=== PATIENT | male | born 1960 | race Caucasian/White ===

== ENCOUNTER 2022-12-19 17:25 | Inpatient (IN) | payer MEDICAID, OTHER ==
--- NOTE | 2022-12-19 17:37 | ED ---
General Adult HPI - General Source: patient, police, RN notes reviewed, old records reviewed Limitations: no limitations <Miguel Dietrich - Last Filed: 12/19/22 17:55> <Stas Hernandez - Last Filed: 12/19/22 22:57> - General Stated complaint: Mental Health, ETOH Time Seen by Provider: 12/19/22 17:27 - History of Present Illness Initial comments: 60-year-old male presenting with local police for evaluation of suicidal ideation with plan to hang himself. Patient was found in the [place] by police he was agitated, aggressive, and intoxicated. He was starting to hang himself and stated that even if he was taken in for mental health evaluation he would complete suicide when he is released. (Miguel Dietrich) - Related Data Home Medications Medication Instructions Recorded Confirmed Ibuprofen [Motrin Ib] 400 mg PO BID 12/19/22 12/19/22 Multivitamins, Thera [Multivitamin 1 tab PO DAILY 12/19/22 12/19/22 (formulary)] Allergies Allergy/AdvReac Type Severity Reaction Status Date / Time No Known Allergies Allergy Verified 12/19/22 19:47 Review of Systems ROS Other: All systems not noted in ROS Statement are negative. <Miguel Dietrich - Last Filed: 12/19/22 17:55> ROS Other: All systems not noted in ROS Statement are negative. <Stas Hernandez - Last Filed: 12/19/22 22:57> ROS Statement: Those systems with pertinent positive or pertinent negative responses have been documented in the HPI. General Exam General appearance: alert, appears intoxicated Head exam: Present: atraumatic, normocephalic Eye exam: Present: normal appearance, PERRL ENT exam: Present: normal exam Neck exam: Present: normal inspection. Absent: tenderness, meningismus Respiratory exam: Present: normal lung sounds bilaterally. Absent: respiratory distress, wheezes Cardiovascular Exam: Present: regular rate, normal rhythm GI/Abdominal exam: Present: soft. Absent: distended, tenderness, guarding Extremities exam: Present: normal inspection, normal capillary refill Neurological exam: Present: alert, oriented X3, CN II-XII intact. Absent: motor sensory deficit Psychiatric exam: Present: agitated, anxious, suicidal ideation Skin exam: Present: warm, dry, intact <Miguel Dietrich - Last Filed: 12/19/22 17:55> Course <Miguel Dietrich - Last Filed: 12/19/22 17:55> Vital Signs 12/19/22 17:48 Pulse Rate 101 H Respiratory 18 Rate Blood Pressure 150/76 O2 Sat by Pulse 98 Oximetry - Reevaluation(s) Reevaluation #1: 12/19/22 17:55 Medically cleared, awaiting EPS eval (Miguel Dietrich) Medical Decision Making <Stas Hernnadez - Last Filed: 12/19/22 22:57> - Medical Decision Making Patient is a 62-year-old male previously cleared by primary care physician medically. Pending EPS evaluation. I was notified by EPS the patient does meet inpatient criteria for admission. Clinical Certificate was completed by myself. Diagnosis/symptom? @ -Encounter for psychiatric evaluation, alcohol intoxication, suicidal Acute, or Chronic, or Acute on Chronic? @ -Acute Uncomplicated (without systemic symptoms) or Complicated (systemic symptoms)? @ -Complicated Side effects of treatment? @ -none Exacerbation, Progression, or Severe Exacerbation] @ -no Poses a threat to life or bodily function? @ -yes (Stas Hernandez) Disposition <Miguel Dietrich - Last Filed: 12/19/22 17:55> <Stas Hernandez - Last Filed: 12/19/22 22:57> Clinical Impression: Suicidal ideation, Encounter for psychiatric assessment, Alcohol intoxication Disposition: TRANSFER TO PSYCH HOSP/UNIT Condition: Stable Referrals: None,Stated [Primary Care Provider] - 1-2 days
[2022-12-19] MEDS ORDERED: NICOTINE 21MG/24HR PATCH TRANSDERM STA (20:13)
[2022-12-19] MEDS ORDERED: MAG HYDROX/AL HYDROX/SIMETH 30 ML CUP PO PRN (22:09)
[2022-12-19] MEDS ORDERED: IBUPROFEN 600 MG TAB PO PRN (22:09)
[2022-12-19] MEDS ORDERED: LORazepam 2 MG/ML INJ IM PRN (22:09)
[2022-12-19] MEDS ORDERED: MAGNESIUM HYDROXIDE 2,400 MG/30 ML CUP PO PRN (22:09)
[2022-12-19] MEDS ORDERED: LORazepam 1 MG TAB PO PRN (22:09)
[2022-12-19] MEDS ORDERED: ACETAMINOPHEN TAB 325 MG TAB PO PRN (22:09)
[2022-12-19] MEDS ORDERED: HALOPERIDOL LACTATE 5 MG/ML 1 ML VIAL IM PRN (22:09)
[2022-12-19] MEDS ORDERED: traZODone HCL 50 MG TAB PO PRN (22:09)
[2022-12-19] MEDS ORDERED: haloperidoL 5 MG TAB PO PRN (22:09)
[2022-12-20 00:50] LABS: Appearance,Urine Clear (Clear); Bilirubin,Urine Negative (Negative); Blood,Urine Negative (Negative); Color,Urine Yellow; Glucose,Urine (UA) Negative (Negative); Ketones,Urine Negative (Negative); Leukocyte Esterase,Urine Negative (Negative); Nitrite,Urine Negative (Negative); PH, Urine 5.5 (5.0-8.0); Protein,Urine Negative (Negative); Specific Gravity,Urine 1.016 (1.001-1.035); Urobilinogen,Urine <2.0 mg/dL (<2.0)
[2022-12-20 01:02] LABS: Amphetamine Screen,Urine Not Detected (NotDetected); Barbiturate Screen,Urine Not Detected (NotDetected); Benzodiazepines Screen,Urine Not Detected (NotDetected); Cocaine Screen,Urine Not Detected (NotDetected); Methadone Screen, Urine Not Detected (NotDetected); Opiate Screen,Urine Not Detected (NotDetected); Oxycodone Screen, Urine Not Detected (NotDetected); Phencyclidine Screen,Urine Not Detected (NotDetected); Tricyclic Antidepressant,Urine Not Detected (NotDetected); Urn Cannabinoid Scrn Not Detected (NotDetected)
--- NOTE | 2022-12-20 07:31 | P.HP ---
Psychiatric H&P - . H&P Date: 12/20/22 History & Physical: Allergies Allergy/AdvReac Type Severity Reaction Status Date / Time No Known Allergies Allergy Verified 12/19/22 19:47 Vital Signs Temp 98.1 F 12/20/22 02:46 Pulse 68 12/20/22 02:46 Resp 16 12/20/22 02:46 BP 178/87 12/20/22 02:46 Pulse Ox 98 12/20/22 02:46 FiO2 Intake & Output 12/19/22 12/20/22 12/20/22 18:59 06:59 18:59 Weight 65.771 kg 65.884 kg Laboratory Last Values Urine Color Yellow 12/20/22 00:25 Urine Appearance Clear (Clear) 12/20/22 00:25 Urine pH 5.5 (5.0-8.0) 12/20/22 00:25 Ur Specific [place] 1.016 (1.001-1.035) 12/20/22 00:25 Urine Protein Negative (Negative) 12/20/22 00:25 Urine Glucose (UA) Negative (Negative) 12/20/22 00:25 Urine Ketones Negative (Negative) 12/20/22 00:25 Urine Blood Negative (Negative) 12/20/22 00:25 Urine Nitrite Negative (Negative) 12/20/22 00:25 Urine Bilirubin Negative (Negative) 12/20/22 00:25 Urine Urobilinogen <2.0 mg/dL (<2.0) 12/20/22 00:25 Ur Leukocyte Esterase Negative (Negative) 12/20/22 00:25 Urine Opiates Screen Not Detected (NotDetected) 12/20/22 00:25 Ur Oxycodone Screen Not Detected (NotDetected) 12/20/22 00:25 Urine Methadone Screen Not Detected (NotDetected) 12/20/22 00:25 Ur Propoxyphene Screen Not Detected (NotDetected) 12/20/22 00:25 Ur Barbiturates Screen Not Detected (NotDetected) 12/20/22 00:25 U Tricyclic Antidepress Not Detected (NotDetected) 12/20/22 00:25 Ur Phencyclidine Scrn Not Detected (NotDetected) 12/20/22 00:25 Ur Amphetamines Screen Not Detected (NotDetected) 12/20/22 00:25 U Methamphetamines Scrn Not Detected (NotDetected) 12/20/22 00:25 U Benzodiazepines Scrn Not Detected (NotDetected) 12/20/22 00:25 Urine Cocaine Screen Not Detected (NotDetected) 12/20/22 00:25 U Marijuana (THC) Screen Not Detected (NotDetected) 12/20/22 00:25 Coronavirus (PCR) Not Detected (Not Detectd) 12/19/22 22:33 12/20/22 07:26 60-year-old male presenting with local police for evaluation of suicidal ideation with plan to hang himself. Patient was found in the [place] by police he was agitated, aggressive, and intoxicated. He was starting to hang himself and stated that even if he was taken in for mental health evaluation he would complete suicide when he is released Subjective: Fuck you, I am here against my will I will not talk to I will not cooperate you can all talk yourselves. I've lost my I've lost my job what do you expect. Objective the patient was up early pacing in the [place] he had absolutely no eye contact except to briefly glare at me and then walk away. I walked at a safe distance alongside him up and down the [place] for a while and told him that if he change his mind I would be glad to talk to him at length and that if he didn't like being here the best way to get out would be too talk with his. He responded "cooperate why would I fucking do that"? Gait was fast affect was agitated self-care with minimal as he was dressed in hospital gown hair was trim. His responses were nonpsychotic I did not see any responding to voices. He absolutely refused to talk to me. Working diagnosis: Major depression severe Assessment: Patient is a danger to himself and maybe to others in his irrational rage. He had promised people in the emergency room by the Zolo[place] may go as well just kill myself on every you do so why keep me here? He will need to go to court and then we will treat him hopefully he will calm down and decided to give us information so we can give him better help. When he came in there was question of intoxication his drugs greenest clear and he is no longer intoxicated but still not willing to work with us.
[2022-12-20] MEDS: NICOTINE 14MG/24HR PATCH TRANSDERM SCH (08:59)
[2022-12-20 12:47] LABS: Basophils % (A) 0 %; Eosinophils # (A) 0.2 k/uL (0-0.7); Eosinophils % (A) 2 %; HCT 47.9 % (39.0-53.0); HGB 15.9 gm/dL (13.0-17.5); Lymphocytes # (A) 2.3 k/uL (1.0-4.8); Lymphocytes % (A) 20 %; MCH 31.5 pg (25.0-35.0); MCHC 33.2 g/dL (31.0-37.0); MCV 94.9 fL (80.0-100.0); Mean Platelet Volume 7.8; Monocytes # (A) 0.5 k/uL (0-1.0); Monocytes % (A) 5 %; Neutrophils # (A) 7.9 k/uL (1.3-7.7); Neutrophils % (A) 71 %; Platelet Count 258 k/uL (150-450); RBC 5.05 m/uL (4.30-5.90); RDW 13.3 % (11.5-15.5)
[2022-12-20 13:17] LABS: ALT 28 U/L (4-49); AST 33 U/L (17-59); African American GFR (CKD) >90 (>60 ml/min/1.73 sqM); Albumin 4.3 g/dL (3.5-5.0); Alkaline Phosphatase 85 U/L (38-126); Anion Gap 6 mmol/L; Blood Urea Nitrogen 11 mg/dL (9-20); Calcium 9.2 mg/dL (8.4-10.2); Carbon Dioxide 28 mmol/L (22-30); Chloride 103 mmol/L (98-107); Glucose 94 mg/dL (74-99); Non-African American GFR(CKD) 80 (>60 ml/min/1.73 sqM); Potassium 4.3 mmol/L (3.5-5.1); Sodium 137 mmol/L (137-145); Total Bilirubin 0.7 mg/dL (0.2-1.3); Total Protein 7.2 g/dL (6.3-8.2)
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
[2022-12-20] MEDS: hydroCHLOROthiazide 12.5 MG CAP PO SCH (15:03)
--- NOTE | 2022-12-20 15:16 | P.PN ---
Subjective Progress Note Date: 12/20/22 Principal diagnosis: Major depression severe nonpsychotic In reviewing the details on the chart the patient would not share with me he had a plan to hang himself was found by the police attempting to do so and promised to come back to the same spot when we release him and finish the job. He also has talked about a former girlfriend who he had a child with and that he was go ing to "take her out. He also told his that he wanted to hang himself [facility] on . he wanted to be with his mother and father were both . He told his brother that he is going to kill himself. He attempted overdose when he was younger does not go back to the same spot films he also wanted to be with his brother who is . Objective - Vital Signs Vital signs: Vital Signs Temp 98.1 F 12/20/22 02:46 Pulse 68 12/20/22 02:46 Resp 16 12/20/22 02:46 BP 178/87 12/20/22 02:46 Pulse Ox 98 12/20/22 02:46 FiO2 Intake & Output 12/19/22 12/20/22 12/20/22 18:59 06:59 18:59 Weight 65.771 kg 65.884 kg 67.2 kg - Labs CBC & Chem 7: 12/20/22 11:50 12/20/22 11:50 Labs: Abnormal Lab Results - Last 24 Hours (Table) 12/20/22 Range/Units 11:50 WBC 11.0 H (3.8-10.6) k/uL Neutrophils # 7.9 H (1.3-7.7) k/uL
[2022-12-21 06:10] LABS: Chol/HDL Ratio 3.55 Ratio; LDL Cholesterol,Calculated 114.8 mg/dL (0.0-131.0)
[2022-12-21] MEDS: hydroCHLOROthiazide 12.5 MG CAP PO SCH (07:47)
[2022-12-21] MEDS: NICOTINE 14MG/24HR PATCH TRANSDERM SCH (07:47)
--- NOTE | 2022-12-21 11:44 | P.PN ---
Progress Note - Text Progress Note Date: 12/21/22 Interval History: Patient was seen resting in bed and was directable and agreeable to speak with senior mortgage underwriter in the office. The patient is vehemently denying any current suicidal or homicidal ideation. When inquiring about the history that led up to this hospitalization, the patient reports "well you read my chart and it's all there." He maintains that he did not have any news or rope with him when he was in the [place]. He expresses that he has been struggling with the of multiple family members including his mother, father, and sibling over the past few years. He reports that this family reunion cause these feelings to come to a head. When this provider attempted to provide psychoeducation on depression and its treatment, the patient abruptly terminates the interview stating "I'm not here to listen to you." As per staff, the patient reportedly has been contacting family members and leaving threatening messages. Mental Status Exam: General Appearance: Patient appears to be stated age, with slightly disheveled hygiene and grooming, and intermittently cooperative. Behavior: [Patient is calmly seated without any agitated behavior.] Abruptly ends the interview and walks out of the room. Speech: Patient's speech is fluent and nonpressured. Mood/Affect: Mood is "I need to be out of here." Affect is obstinate, irritable. Suicidality/Homicidality: Patient is vehemently denying any suicidal or homicidal ideation. Perceptions: Patient does not answer Though content/process: Patient does not answer. Reports some rumination in regards to family who . Memory and concentration: AOX3, grossly intact for the purposes of this session Judgment and insight: Very poor Frustration tolerance and impulse control: Very poor Vital Signs Temp 98.1 F 12/20/22 02:46 Pulse 80 12/21/22 06:07 Resp 18 12/21/22 06:07 BP 135/78 12/21/22 06:07 Pulse Ox 99 12/21/22 06:07 FiO2 Intake & Output 12/20/22 12/21/22 12/21/22 18:59 06:59 18:59 Weight 67.2 kg Laboratory Results WBC 11.0 k/uL (3.8-10.6) H 12/20/22 11:50 RBC 5.05 m/uL (4.30-5.90) 12/20/22 11:50 Hgb 15.9 gm/dL (13.0-17.5) 12/20/22 11:50 Hct 47.9 % (39.0-53.0) 12/20/22 11:50 MCV 94.9 fL (80.0-100.0) 12/20/22 11:50 MCH 31.5 pg (25.0-35.0) 12/20/22 11:50 MCHC 33.2 g/dL (31.0-37.0) 12/20/22 11:50 RDW 13.3 % (11.5-15.5) 12/20/22 11:50 Plt Count 258 k/uL (150-450) 12/20/22 11:50 MPV 7.8 12/20/22 11:50 Neutrophils % 71 % 12/20/22 11:50 Lymphocytes % 20 % 12/20/22 11:50 Monocytes % 5 % 12/20/22 11:50 Eosinophils % 2 % 12/20/22 11:50 Basophils % 0 % 12/20/22 11:50 Neutrophils # 7.9 k/uL (1.3-7.7) H 12/20/22 11:50 Lymphocytes # 2.3 k/uL (1.0-4.8) 12/20/22 11:50 Monocytes # 0.5 k/uL (0-1.0) 12/20/22 11:50 Eosinophils # 0.2 k/uL (0-0.7) 12/20/22 11:50 Basophils # 0.0 k/uL (0-0.2) 12/20/22 11:50 Sodium 137 mmol/L (137-145) 12/20/22 11:50 Potassium 4.3 mmol/L (3.5-5.1) 12/20/22 11:50 Chloride 103 mmol/L (98-107) 12/20/22 11:50 Carbon Dioxide 28 mmol/L (22-30) 12/20/22 11:50 Anion Gap 6 mmol/L 12/20/22 11:50 BUN 11 mg/dL (9-20) 12/20/22 11:50 Creatinine 1.01 mg/dL (0.66-1.25) 12/20/22 11:50 Est GFR (CKD-EPI)AfAm >90 (>60 ml/min/1.73 sqM) 12/20/22 11:50 Est GFR (CKD-EPI)NonAf 80 (>60 ml/min/1.73 sqM) 12/20/22 11:50 Glucose 94 mg/dL (74-99) 12/20/22 11:[address] Glu mg/dL 123 mg/dL 12/20/22 11:50 Hemoglobin A1c 5.9 % (<=6.0) 12/20/22 11:50 Calcium 9.2 mg/dL (8.4-10.2) 12/20/22 11:50 Total Bilirubin 0.7 mg/dL (0.2-1.3) 12/20/22 11:50 AST 33 U/L (17-59) 12/20/22 11:50 ALT 28 U/L (4-49) 12/20/22 11:50 Alkaline Phosphatase 85 U/L (38-126) 12/20/22 11:50 Total Protein 7.2 g/dL (6.3-8.2) 12/20/22 11:50 Albumin 4.3 g/dL (3.5-5.0) 12/20/22 11:50 Triglycerides 144.00 mg/dL (0.00-149.00) 12/20/22 11:50 Cholesterol 200.00 mg/dL (0.00-200.00) 12/20/22 11:50 LDL Cholesterol, Calc 114.8 mg/dL (0.0-131.0) 12/20/22 11:50 VLDL Cholesterol, Calc 28.80 mg/dL (5.00-40.00) 12/20/22 11:50 HDL Cholesterol 56.40 mg/dL (40.00-60.00) 12/20/22 11:50 Cholesterol/HDL Ratio 3.55 Ratio 12/20/22 11:50 TSH 1.140 mIU/L (0.465-4.680) 12/20/22 11:50 Urine Color Yellow 12/20/22 00:25 Urine Appearance Clear (Clear) 12/20/22 00:25 Urine pH 5.5 (5.0-8.0) 12/20/22 00:25 Ur Specific [place] 1.016 (1.001-1.035) 12/20/22 00:25 Urine Protein Negative (Negative) 12/20/22 00:25 Urine Glucose (UA) Negative (Negative) 12/20/22 00:25 Urine Ketones Negative (Negative) 12/20/22 00:25 Urine Blood Negative (Negative) 12/20/22 00:25 Urine Nitrite Negative (Negative) 12/20/22 00:25 Urine Bilirubin Negative (Negative) 12/20/22 00:25 Urine Urobilinogen <2.0 mg/dL (<2.0) 12/20/22 00:25 Ur Leukocyte Esterase Negative (Negative) 12/20/22 00:25 Urine Opiates Screen Not Detected (NotDetected) 12/20/22 00:25 Ur Oxycodone Screen Not Detected (NotDetected) 12/20/22 00:25 Urine Methadone Screen Not Detected (NotDetected) 12/20/22 00:25 Ur Propoxyphene Screen Not Detected (NotDetected) 12/20/22 00:25 Ur Barbiturates Screen Not Detected (NotDetected) 12/20/22 00:25 U Tricyclic Antidepress Not Detected (NotDetected) 12/20/22 00:25 Ur Phencyclidine Scrn Not Detected (NotDetected) 12/20/22 00:25 Ur Amphetamines Screen Not Detected (NotDetected) 12/20/22 00:25 U Methamphetamines Scrn Not Detected (NotDetected) 12/20/22 00:25 U Benzodiazepines Scrn Not Detected (NotDetected) 12/20/22 00:25 Urine Cocaine Screen Not Detected (NotDetected) 12/20/22 00:25 U Marijuana (THC) Screen Not Detected (NotDetected) 12/20/22 00:25 Coronavirus (PCR) Not Detected (Not Detectd) 12/19/22 22:33 Assessment Major depressive disorder, recurrent, severe Plan: -Patient continues to meet criteria for inpatient psychiatric admission for symptom stabilization and safety. The patient has been petitioned and certified. Patient remains obstinate at this time. We will continue to approach the patient and encourage him to address depressive symptoms and suicidal ideation. He appears to be pre-contemplative in regards to his mental health issues. -Medications: Medications have not been ordered at this time. Patient is refusing any antidepressant medication. He is refusing to participate in informed consent conversation. -When necessary Ativan and Haldol for agitation/aggression. -SW on board for discharge planning. Encouraged the patient to participate in milieu and individual therapies.
[2022-12-22] MEDS: NICOTINE 14MG/24HR PATCH TRANSDERM SCH (08:22)
[2022-12-22] MEDS: hydroCHLOROthiazide 12.5 MG CAP PO SCH (08:22)
--- NOTE | 2022-12-22 12:51 | P.PN ---
Progress Note - Text Progress Note Date: 12/22/22 Interval History: Patient was seen resting in bed and was directable and agreeable to speak with brief writer in the office. The patient reports that he is willing to receive treatment now. He states that he was hurt about his involuntary admission and was bothered by his relationship with his brother and his . He does report a long history of trauma and depression. He also reports that he has been unable to appropriately grieve the loss of his multiple family members. He does endorse significant symptoms of depression and anxiety including anhedonia, low mood, irritability, and restlessness. He is agreeable to starting Remeron today. He reports no auditory or visual hallucinations. He denies any paranoia or other delusions. Mental Status Exam: General Appearance: Patient appears to be stated age, with improved hygiene and grooming. Cooperative today. Behavior: Patient is calmly seated without any agitated behavior. Speech: Patient's speech is fluent and nonpressured. Mood/Affect: Mood is "I realize I need the help." Affect is tearful Suicidality/Homicidality: Patient is currently denying any suicidal or homicidal ideation Perceptions: Patient denies any auditory or visual hallucination. Though content/process: Patient does ruminate on past family members . Memory and concentration: AOX3, grossly intact for the purposes of this session Judgment and insight: Improving Frustration tolerance and impulse control: Improving Vital Signs Temp 97.7 F 12/22/22 06:00 Pulse 93 12/22/22 08:24 Resp 16 12/22/22 06:00 BP 136/80 12/22/22 08:24 Pulse Ox 98 12/22/22 06:00 FiO2 Assessment Major depressive disorder, recurrent, severe PTSD Plan: -Patient continues to meet criteria for inpatient psychiatric admission for symptom stabilization and safety. The patient has been petitioned and certified. He is cooperative today and wishes to engage in treatment. -Medications: We will start the patient on Remeron 7.5 mg by mouth at bedtime for depression/PTSD/insomnia. Informed consent discussion held. -When necessary Ativan and Haldol for agitation/aggression. -SW on board for discharge planning. Encouraged the patient to participate in milieu and individual therapies.
[2022-12-22] MEDS: MELATONIN 5 MG TABLET PO SCH (20:34)
[2022-12-22] MEDS: MIRTAZAPINE 15 MG TAB PO SCH (20:34)
[2022-12-23] MEDS: hydroCHLOROthiazide 12.5 MG CAP PO SCH (08:19)
[2022-12-23] MEDS: NICOTINE 14MG/24HR PATCH TRANSDERM SCH (08:19)
--- NOTE | 2022-12-23 14:08 | P.PN ---
Progress Note - Text Progress Note Date: 12/23/22 Interval History: Patient was seen resting in bed and was directable and agreeable to speak with show card writer in his room. Currently, the patient is not reporting any suicidal or homicidal ideation, intention, and/or plan. He is denying any paranoia or other delusions. He is denying any auditory or visual hallucinations. He has been adherent with his medication and reports that he is feeling well rested but not overly sedated. He was informed that he should speak with his in order to help with discharge planning. Mental Status Exam: General Appearance: Patient appears to be stated age, with improved hygiene and grooming. Cooperative today. Behavior: Patient is calmly seated without any agitated behavior. Speech: Patient's speech is fluent and nonpressured. Mood/Affect: Mood is "I'm feeling better." Affect is euthymic Suicidality/Homicidality: Patient is currently denying any suicidal or homicidal ideation Perceptions: Patient denies any auditory or visual hallucination. Though content/process: Linear and logical. Future oriented. Memory and concentration: AOX3, grossly intact for the purposes of this session Judgment and insight: Improving Frustration tolerance and impulse control: Improving Vital Signs Temp 97.5 F L 12/23/22 06:57 Pulse 63 12/23/22 06:57 Resp 16 12/23/22 06:57 BP 162/76 12/23/22 06:57 Pulse Ox 98 12/22/22 06:00 FiO2 Laboratory Results WBC 11.0 k/uL (3.8-10.6) H 12/20/22 11:50 RBC 5.05 m/uL (4.30-5.90) 12/20/22 11:50 Hgb 15.9 gm/dL (13.0-17.5) 12/20/22 11:50 Hct 47.9 % (39.0-53.0) 12/20/22 11:50 MCV 94.9 fL (80.0-100.0) 12/20/22 11:50 MCH 31.5 pg (25.0-35.0) 12/20/22 11:50 MCHC 33.2 g/dL (31.0-37.0) 12/20/22 11:50 RDW 13.3 % (11.5-15.5) 12/20/22 11:50 Plt Count 258 k/uL (150-450) 12/20/22 11:50 MPV 7.8 12/20/22 11:50 Neutrophils % 71 % 12/20/22 11:50 Lymphocytes % 20 % 12/20/22 11:50 Monocytes % 5 % 12/20/22 11:50 Eosinophils % 2 % 12/20/22 11:50 Basophils % 0 % 12/20/22 11:50 Neutrophils # 7.9 k/uL (1.3-7.7) H 12/20/22 11:50 Lymphocytes # 2.3 k/uL (1.0-4.8) 12/20/22 11:50 Monocytes # 0.5 k/uL (0-1.0) 12/20/22 11:50 Eosinophils # 0.2 k/uL (0-0.7) 12/20/22 11:50 Basophils # 0.0 k/uL (0-0.2) 12/20/22 11:50 Sodium 137 mmol/L (137-145) 12/20/22 11:50 Potassium 4.3 mmol/L (3.5-5.1) 12/20/22 11:50 Chloride 103 mmol/L (98-107) 12/20/22 11:50 Carbon Dioxide 28 mmol/L (22-30) 12/20/22 11:50 Anion Gap 6 mmol/L 12/20/22 11:50 BUN 11 mg/dL (9-20) 12/20/22 11:50 Creatinine 1.01 mg/dL (0.66-1.25) 12/20/22 11:50 Est GFR (CKD-EPI)AfAm >90 (>60 ml/min/1.73 sqM) 12/20/22 11:50 Est GFR (CKD-EPI)NonAf 80 (>60 ml/min/1.73 sqM) 12/20/22 11:50 Glucose 94 mg/dL (74-99) 12/20/22 11:[address] Glu mg/dL 123 mg/dL 12/20/22 11:50 Hemoglobin A1c 5.9 % (<=6.0) 12/20/22 11:50 Calcium 9.2 mg/dL (8.4-10.2) 12/20/22 11:50 Total Bilirubin 0.7 mg/dL (0.2-1.3) 12/20/22 11:50 AST 33 U/L (17-59) 12/20/22 11:50 ALT 28 U/L (4-49) 12/20/22 11:50 Alkaline Phosphatase 85 U/L (38-126) 12/20/22 11:50 Total Protein 7.2 g/dL (6.3-8.2) 12/20/22 11:50 Albumin 4.3 g/dL (3.5-5.0) 12/20/22 11:50 Triglycerides 144.00 mg/dL (0.00-149.00) 12/20/22 11:50 Cholesterol 200.00 mg/dL (0.00-200.00) 12/20/22 11:50 LDL Cholesterol, Calc 114.8 mg/dL (0.0-131.0) 12/20/22 11:50 VLDL Cholesterol, Calc 28.80 mg/dL (5.00-40.00) 12/20/22 11:50 HDL Cholesterol 56.40 mg/dL (40.00-60.00) 12/20/22 11:50 Cholesterol/HDL Ratio 3.55 Ratio 12/20/22 11:50 TSH 1.140 mIU/L (0.465-4.680) 12/20/22 11:50 Urine Color Yellow 12/20/22 00:25 Urine Appearance Clear (Clear) 12/20/22 00:25 Urine pH 5.5 (5.0-8.0) 12/20/22 00:25 Ur Specific [place] 1.016 (1.001-1.035) 12/20/22 00:25 Urine Protein Negative (Negative) 12/20/22 00:25 Urine Glucose (UA) Negative (Negative) 12/20/22 00:25 Urine Ketones Negative (Negative) 12/20/22 00:25 Urine Blood Negative (Negative) 12/20/22 00:25 Urine Nitrite Negative (Negative) 12/20/22 00:25 Urine Bilirubin Negative (Negative) 12/20/22 00:25 Urine Urobilinogen <2.0 mg/dL (<2.0) 12/20/22 00:25 Ur Leukocyte Esterase Negative (Negative) 12/20/22 00:25 Urine Opiates Screen Not Detected (NotDetected) 12/20/22 00:25 Ur Oxycodone Screen Not Detected (NotDetected) 12/20/22 00:25 Urine Methadone Screen Not Detected (NotDetected) 12/20/22 00:25 Ur Propoxyphene Screen Not Detected (NotDetected) 12/20/22 00:25 Ur Barbiturates Screen Not Detected (NotDetected) 12/20/22 00:25 U Tricyclic Antidepress Not Detected (NotDetected) 12/20/22 00:25 Ur Phencyclidine Scrn Not Detected (NotDetected) 12/20/22 00:25 Ur Amphetamines Screen Not Detected (NotDetected) 12/20/22 00:25 U Methamphetamines Scrn Not Detected (NotDetected) 12/20/22 00:25 U Benzodiazepines Scrn Not Detected (NotDetected) 12/20/22 00:25 Urine Cocaine Screen Not Detected (NotDetected) 12/20/22 00:25 U Marijuana (THC) Screen Not Detected (NotDetected) 12/20/22 00:25 Coronavirus (PCR) Not Detected (Not Detectd) 12/19/22 22:33 Assessment Major depressive disorder, recurrent, severe PTSD Plan: -Patient continues to meet criteria for inpatient psychiatric admission for symptom stabilization and safety. The patient has been petitioned and certified. Patient plans to sign a deferral tomorrow. -Medications: Continue Remeron 7.5 mg by mouth at bedtime for depression/PTSD/insomnia. -When necessary Ativan and Haldol for agitation/aggression. -SW on board for discharge planning. Encouraged the patient to participate in milieu and individual therapies.
[2022-12-23] MEDS: MELATONIN 5 MG TABLET PO SCH (20:52)
[2022-12-23] MEDS: MIRTAZAPINE 15 MG TAB PO SCH (20:52)
[2022-12-24 06:45] VITALS: BP 143/89; PULSE 74; RESP 18; TEMP 98.5
[2022-12-24] MEDS: NICOTINE 14MG/24HR PATCH TRANSDERM SCH (08:47)
[2022-12-24] MEDS: hydroCHLOROthiazide 12.5 MG CAP PO SCH (08:47)
--- NOTE | 2022-12-24 12:26 | P.DS ---
Providers Date of admission: 12/20/22 01:04 Expected date of discharge: 12/24/22 Attending physician: Lorenzo Swann MD Consults: 12/19/22 22:09 Consult Physician Routine Consulting Provider: [facility] Consult Reason/Comments: h and p Do you want consulting provider notified?: Yes, Notify in am Primary care physician: Stated None - Discharge Diagnosis(es) (1) Major depressive disorder, recurrent episode, severe Current Visit: Yes Status: Acute Priority: High (2) PTSD (post-traumatic stress disorder) Current Visit: Yes Status: Chronic Priority: Medium Hospital Course: Admission HPI: Initial psychiatric evaluation was completed by Dr. Shaikh on 12/20/2022 who wrote: 60-year-old male presenting with local police for evaluation of suicidal ideation with plan to hang himself. Patient was found in the [place] by police he was agitated, aggressive, and intoxicated. He was starting to hang himself and stated that even if he was taken in for mental health evaluation he would complete suicide when he is released Subjective: Fuck you, I am here against my will I will not talk to I will not cooperate you can all talk yourselves. I've lost my I've lost my job what do you expect. Objective the patient was up early pacing in the [place] he had absolutely no eye contact except to briefly glare at me and then walk away. I walked at a safe distance alongside him up and down the [place] for a while and told him that if he change his mind I would be glad to talk to him at length and that if he didn't like being here the best way to get out would be too talk with his. He responded "cooperate why would I fucking do that"? Gait was fast affect was agitated self-care with minimal as he was dressed in hospital gown hair was trim. His responses were nonpsychotic I did not see any responding to voices. He absolutely refused to talk to me. Working diagnosis: Major depression severe Hospital course: Upon admission to the unit patient was initially presenting as angry, uncooperative, and expressing suicidal and homicidal ideation. Furthermore, the patient was verbalizing threats towards his family members who petitioned him for mental health treatment. For the first few days of the admission, the patient was uncooperative and prefers to isolate himself in his room. Eventually, the patient was able to open up and discuss his history of depression, PTSD, and anxiety as well as his problems with acute bereavement and grief and has been ongoing for the past year. He became much more cooperative with staff and peers. He was agreeable to starting Remeron in order to address his issues of depression, anxiety, and insomnia. On this regimen, the patient despite significant improvement in regards to started symptoms of depression, anger, and suicidal ideation. He became more future and goal oriented and develop better insight and judgment. He reported wanting to live for himself and for his family. Although he is experiencing conflict with his , he expresses a strong desire for them to work things out in the future. The patient was agreeable to providing the number for his Princess ([phone]) and Brother Dom ([phone]) in order for the treatment team to perform her duty to warn. This provider was able to speak with his brother and informed them of our intention to discharge. His brother Dom acknowledged the duty to warn. HIPAA compliant voicemail was left in Princess's mailbox regarding the patient's imminent release. On the day of discharge, the patient is vehemently denying any suicidal or homicidal ideation, intention, and/or plan. He is not endorsing any auditory or visual hallucinations. He reports no access to firearms or other weapons. He has been adherent with his medications is not reporting any significant side effects. He denies any medical issues or concerns. He reports no chest pain, short of breath, palpitations, lightheadedness, nausea, or vomiting. He was counseled at length on the points medication adherence outpatient follow-up. Although he does not have a significant history of substance abuse he was counseled great length and abstaining from all substances including alcohol, tobacco, marijuana, and all illicit drugs. As the patient no longer met criteria for continued inpatient psychiatric hospitalization, he was subsequently discharged after appropriate safety planning. Mental status exam: General Appearance: Patient appears to be stated age is alert, pleasant, and cooperative. Patient is in no acute distress and has fair hygiene and grooming Behavior: Patient is calmly seated without any agitated behavior. Speech: Patient's speech is fluent and nonpressured. Mood/Affect: Patient reports their mood is "much better", affect is congruent and euthymic to bright. Suicidality/Homicidality: Patient vehemently denies any suicidal or homicidal ideation, intention, and/or plan. Perceptions: Patient denies any auditory or visual hallucinations. Though content/process: There is no evidence of any delusional thought content and thought process is linear and goal-directed. He is future and goal oriented. Memory and concentration: AOX3, grossly intact for the purposes of this session. Can spell "WORLD" backwards correctly. Judgment and insight: Improved with guarded prognosis Impression: Major depressive disorder, recurrent, severe PTSD Plan: -Continue with discharge today as patient has improved and stabilized psychiatrically and is not currently an imminent threat to himself and/or others. Patient will remain at chronically elevated risk due to his age, gender, and racial demographic. Furthermore his recent attempt at suicide. He is also currently undergoing financial and relationship stressors. -Continue medications: Remeron 7.5 mg by mouth at bedtime for depression/anxiety/PTSD/insomnia Melatonin 5 mg by mouth at bedtime when necessary for insomnia Hydrochlorothiazide for hypertension -Patient was counseled on the need for medication compliance and appropriate follow-up at mental health and also primary care for medical issues. Patient verbalized understanding and agreed. -Social work to arrange for and conduct family meeting to ensure safety upon discharge and answer any questions/concerns. Social work also to arrange for patients follow up appointments with [facility] for psychiatric care along with follow up with primary care provider. -Patient counseled on abstaining from recreational drugs and marijuana and alcohol. Was informed/educated on the adverse effects on their physical and mental health. Patient verbally agreed and understood. -Patient was instructed to return to the hospital or seek immediate medical care if their psychiatric or medical symptoms do worsen or reoccur. -Psychoeducation and supportive therapy provided to patient. Risks and benefits of pharmacological treatment versus the risks and benefits of nontreatment weighed and discussed. Informed consent discussion held. Common side effects of psychotropics discussed such as, but not limited to headache, GI disturbance, sexual dysfunction, movement disorders, sedation, and orthostatic hypotension. Life threatening and blackbox warnings of prescribed medications also discussed. Potential risks of operating a vehicle or heavy machinery discussed with patient at length. Advised on importance of compliance and a reliable and responsible manner. Patient advised to review FDA consumer labeling of all medications prior to taking. Patient verbalized understanding of potential risks, and agrees with current treatment plan. Patient advised to medically contact physician/emergency personnel if any acute changes in condition occur. Vital Signs Temp 98.5 F 12/24/22 06:44 Pulse 74 12/24/22 06:44 Resp 18 12/24/22 06:44 BP 143/89 12/24/22 06:44 Pulse Ox 98 12/22/22 06:00 FiO2 Laboratory Results WBC 11.0 k/uL (3.8-10.6) H 12/20/22 11:50 RBC 5.05 m/uL (4.30-5.90) 12/20/22 11:50 Hgb 15.9 gm/dL (13.0-17.5) 12/20/22 11:50 Hct 47.9 % (39.0-53.0) 12/20/22 11:50 MCV 94.9 fL (80.0-100.0) 12/20/22 11:50 MCH 31.5 pg (25.0-35.0) 12/20/22 11:50 MCHC 33.2 g/dL (31.0-37.0) 12/20/22 11:50 RDW 13.3 % (11.5-15.5) 12/20/22 11:50 Plt Count 258 k/uL (150-450) 12/20/22 11:50 MPV 7.8 12/20/22 11:50 Neutrophils % 71 % 12/20/22 11:50 Lymphocytes % 20 % 12/20/22 11:50 Monocytes % 5 % 12/20/22 11:50 Eosinophils % 2 % 12/20/22 11:50 Basophils % 0 % 12/20/22 11:50 Neutrophils # 7.9 k/uL (1.3-7.7) H 12/20/22 11:50 Lymphocytes # 2.3 k/uL (1.0-4.8) 12/20/22 11:50 Monocytes # 0.5 k/uL (0-1.0) 12/20/22 11:50 Eosinophils # 0.2 k/uL (0-0.7) 12/20/22 11:50 Basophils # 0.0 k/uL (0-0.2) 12/20/22 11:50 Sodium 137 mmol/L (137-145) 12/20/22 11:50 Potassium 4.3 mmol/L (3.5-5.1) 12/20/22 11:50 Chloride 103 mmol/L (98-107) 12/20/22 11:50 Carbon Dioxide 28 mmol/L (22-30) 12/20/22 11:50 Anion Gap 6 mmol/L 12/20/22 11:50 BUN 11 mg/dL (9-20) 12/20/22 11:50 Creatinine 1.01 mg/dL (0.66-1.25) 12/20/22 11:50 Est GFR (CKD-EPI)AfAm >90 (>60 ml/min/1.73 sqM) 12/20/22 11:50 Est GFR (CKD-EPI)NonAf 80 (>60 ml/min/1.73 sqM) 12/20/22 11:50 Glucose 94 mg/dL (74-99) 12/20/22 11:[address] Glu mg/dL 123 mg/dL 12/20/22 11:50 Hemoglobin A1c 5.9 % (<=6.0) 12/20/22 11:50 Calcium 9.2 mg/dL (8.4-10.2) 12/20/22 11:50 Total Bilirubin 0.7 mg/dL (0.2-1.3) 12/20/22 11:50 AST 33 U/L (17-59) 12/20/22 11:50 ALT 28 U/L (4-49) 12/20/22 11:50 Alkaline Phosphatase 85 U/L (38-126) 12/20/22 11:50 Total Protein 7.2 g/dL (6.3-8.2) 12/20/22 11:50 Albumin 4.3 g/dL (3.5-5.0) 12/20/22 11:50 Triglycerides 144.00 mg/dL (0.00-149.00) 12/20/22 11:50 Cholesterol 200.00 mg/dL (0.00-200.00) 12/20/22 11:50 LDL Cholesterol, Calc 114.8 mg/dL (0.0-131.0) 12/20/22 11:50 VLDL Cholesterol, Calc 28.80 mg/dL (5.00-40.00) 12/20/22 11:50 HDL Cholesterol 56.40 mg/dL (40.00-60.00) 12/20/22 11:50 Cholesterol/HDL Ratio 3.55 Ratio 12/20/22 11:50 TSH 1.140 mIU/L (0.465-4.680) 12/20/22 11:50 Urine Color Yellow 12/20/22 00:25 Urine Appearance Clear (Clear) 12/20/22 00:25 Urine pH 5.5 (5.0-8.0) 12/20/22 00:25 Ur Specific [place] 1.016 (1.001-1.035) 12/20/22 00:25 Urine Protein Negative (Negative) 12/20/22 00:25 Urine Glucose (UA) Negative (Negative) 12/20/22 00:25 Urine Ketones Negative (Negative) 12/20/22 00:25 Urine Blood Negative (Negative) 12/20/22 00:25 Urine Nitrite Negative (Negative) 12/20/22 00:25 Urine Bilirubin Negative (Negative) 12/20/22 00:25 Urine Urobilinogen <2.0 mg/dL (<2.0) 12/20/22 00:25 Ur Leukocyte Esterase Negative (Negative) 12/20/22 00:25 Urine Opiates Screen Not Detected (NotDetected) 12/20/22 00:25 Ur Oxycodone Screen Not Detected (NotDetected) 12/20/22 00:25 Urine Methadone Screen Not Detected (NotDetected) 12/20/22 00:25 Ur Propoxyphene Screen Not Detected (NotDetected) 12/20/22 00:25 Ur Barbiturates Screen Not Detected (NotDetected) 12/20/22 00:25 U Tricyclic Antidepress Not Detected (NotDetected) 12/20/22 00:25 Ur Phencyclidine Scrn Not Detected (NotDetected) 12/20/22 00:25 Ur Amphetamines Screen Not Detected (NotDetected) 12/20/22 00:25 U Methamphetamines Scrn Not Detected (NotDetected) 12/20/22 00:25 U Benzodiazepines Scrn Not Detected (NotDetected) 12/20/22 00:25 Urine Cocaine Screen Not Detected (NotDetected) 12/20/22 00:25 U Marijuana (THC) Screen Not Detected (NotDetected) 12/20/22 00:25 Coronavirus (PCR) Not Detected (Not Detectd) 12/19/22 22:33 Allergies Allergy/AdvReac Type Severity Reaction Status Date / Time No Known Allergies Allergy Verified 12/19/22 19:47 Patient Condition at Discharge: Stable Plan - Discharge Summary Discharge Rx Participant: No New Discharge Prescriptions: New hydroCHLOROthiazide [Hydrodiuril] 12.5 mg PO DAILY 30 Days #30 cap Melatonin 5 mg PO HS PRN 30 Days #30 tab PRN Reason: Insomnia Mirtazapine [Remeron] 7.5 mg PO HS 30 Days #30 tab Discontinued Multivitamins, Thera [Multivitamin (formulary)] 1 tab PO DAILY Ibuprofen [Motrin Ib] 400 mg PO BID Discharge Medication List Melatonin 5 mg PO HS PRN 30 Days #30 tab 12/24/22 [Rx] Mirtazapine [Remeron] 7.5 mg PO HS 30 Days #30 tab 12/24/22 [Rx] hydroCHLOROthiazide [Hydrodiuril] 12.5 mg PO DAILY 30 Days #30 cap 12/24/22 [Rx] Follow up Appointment(s)/Referral(s): [facility] [Other] - 01/13/23 9:00 am (with intake/line worker) None,Stated [Primary Care Provider] - 1-2 days Patient Instructions/Handouts: Depression (DC), Post Traumatic Stress Disorder (DC), Abuse of Alcohol (DC), Alcohol Withdrawal (DC), Suicide Prevention (DC) Activity/Diet/Wound Care/Special Instructions: Avoid the use of street drugs and alcohol. Take all medications as prescribed. When you are in need of refills on your medications, please contact your medical provider and/or outpatient psychiatrist/provider to have this done. Please go to your scheduled outpatient appointment for aftercare treatment. If symptoms return or become worse, call the crisis line at and/or go to the nearest emergency room for evaluation. National Suicide Hotline 740. Discharge Disposition: HOME SELF-CARE
== END 2022-12-24 13:32 | disposition home or self-care (01) | DRG 751 ==
LOC: EC 17:25 → 3MHU 12-20 01:04
PROVIDERS: ADMIT Psychiatry & Neurology Psychiatry; ATTEND Psychiatry & Neurology Psychiatry
DX: F33.2 Major depressive disorder, recurrent severe without psychotic features (principal); F10.929 Alcohol use, unspecified with intoxication, unspecified; F43.10 Post-traumatic stress disorder, unspecified; F17.200 Nicotine dependence, unspecified, uncomplicated; G47.00 Insomnia, unspecified; I10 Essential (primary) hypertension; R45.850 Homicidal ideations; R45.851 Suicidal ideations; Z20.822 Contact with and (suspected) exposure to COVID-19
CPT/HCPCS: 80053; 80061; 80306; 81003; 82075; 83036; 84443; 85025; 87635; 99285